=== PATIENT | male | born 1975 | race Caucasian/White ===

== ENCOUNTER 2023-12-13 06:31 | Outpatient (REF) | payer OTHER, SELFPAY ==
--- NOTE | ~2023-12-13 | XR_ITS ---
EXAMINATION: XR KNEE, RIGHT CLINICAL INFORMATION: Pain. COMPARISON: None available. TECHNIQUE: AP standing view of bilateral knees 2 views of the right knee. FINDINGS: RIGHT KNEE: Mild narrowing of the medial compartment. Small joint effusion. Heterogeneous ossicles along the anterior distal diametaphysis of the femur measuring approximately 1.7 cm. Similar appearing 1.4 ossicle along the posterior lateral aspect of the distal femur. Tiny posterior patellar spurs. AP STANDING VIEW LEFT KNEE: Minimal narrowing of the medial compartment. XR/XR knee RT 3V IMPRESSION: Mild degenerative changes in the right knee with heterogeneous ossicles along the distal right femur.
== END 2023-12-13 06:32 | disposition home or self-care (01) ==
LOC: HO.HOSX 06:31
PROVIDERS: Visit Provider Physician Assistant
DX: M25.561 Pain in right knee (principal)
CPT/HCPCS: 73562

== ENCOUNTER 2023-12-13 08:32 | Outpatient (AMB) | payer OTHER, SELFPAY ==
--- NOTE | 2023-12-13 08:46 | A.OFFVIS_ITS ---
Vital Signs 12/13/23 08:55 Height 6 ft 4 in Weight 190 lb BMI 23.1 Intake Visit Reasons: New Pt - right knee pain Intake Note: Raf is a 48 year old male who presents today as a new patient with complaints of right knee pain. Patient reports that he has had ongoing pain for quite some time now, worsening since February. He has pain with prolonged sitting or prolonged standing. Pain is felt on the medial aspect of the right knee. He takes Aleve for his pain which helps mildly. Allergies No Known Allergies Allergy (Unverified 03/10/20 17:38) HPI HPI New Pt - right knee pain: Details: Raf is a 48 year old male who presents today as a new patient with complaints of right knee pain. Patient reports that he has had ongoing pain for quite some time now, worsening since February. He has pain with prolonged sitting or prolonged standing. Pain is felt on the anterior aspect of the right knee. He takes Aleve for his pain which helps mildly. He describes a burning pain in his thigh more than knee pain when we discussed the details. He has had prior knee surgery. He was hoping to get an MRI today. He is very active in the field and is on his feet all day long. His pain comes and goes and he takes a benzodiazepine when it is painful and he is able to deal with this. [facility] Surgical History (Updated 12/13/23 @ 08:55 by Santa Arreaga CMA) Hx of appendectomy H/O right knee surgery Physical Exam Vital Signs: BMI result Body Mass Index 23.1 Const General: cooperative, healthy appearing, no acute distress, well developed and alert HEENT Head: Yes normal to inspection, Yes normocephalic and Yes atraumatic Mouth: moist mucous membranes Eyes General: appearance normal, both eyes and all related structures EOM: EOMs intact bilaterally Chest Other: no audible wheezing. Resp Other: No audible wheezing Effort & Inspection: normal respiratory effort Back/Spine/Pelvis Cervical Spine: normal cervical lordosis Skin General skin exam: no rashes or lesions noted Neuro General: no focal motor deficits Extrem Other: Normal knee exam. One area over the distal lateral aspect of the femur number with discomfort that is mild. No effusion. Psych Appearance: grossly normal and well kempt Mental Status: mental status grossly normal Speech and movement: Normal speech and movement present Affect: normal affect Attitude: cooperative Results Reviewed Results Reviewed: I personally reviewed relevant radiographs. There is chronic small ossific body over the anterior distal femur who likely in the quadriceps tendon Assessment & Plan Assessment & Plan (1) Loose body in knee, right knee: Code(s): M23.41 - Loose body in knee, right knee Category: Medical Plan: Loose body of the right knee that is not really loose. This is likely entrapped in the quadriceps tendon. It appears chronic and I do not think it is causing his knee discomfort. We discussed this. At this time I do not think there is an indication for an MRI of the knee. His symptoms, when described in detail, represent symptoms of lumbar radiculopathy more than knee pain. If he wants to pursue this he states he will contact his primary care doctor. If his knee pain gets worse or if he feels that the anterior knee loose body is more painful he can return to see me but at this time there is no orthopedic intervention warranted. Orders: Orders XR knee RT 3V Today Garcia Galaviz MD M25.561 - Pain in right knee XR knee RT 3V Today Blossom Xavier PA-C M25.569 - Pain in unspecified knee Coding Level of Care Code New Pt Level 3 (51743) Diagnoses Loose body in knee, right knee M23.41
[2023-12-13 08:55] VITALS: BMI 23.1
== END 2023-12-13 09:25 | disposition home or self-care (01) ==
PROVIDERS: PCP Physician Assistant Medical; Visit Provider Orthopaedic Surgery
DX: M23.41 Loose body in knee, right knee (principal)
CPT/HCPCS: 99203